=== PATIENT | male | born 1935 | race Caucasian/White ===

== ENCOUNTER 2016-08-22 13:57 | Inpatient (IN) | payer OTHER ==
[~2016-08-22] VITALS: Ht 185.4 cm; Wt 110.4 kg
[2016-08-22] VITALS (11 sets, daily range): BP systolic 164–1523; BP diastolic 71–89
[~2016-08-22 13:57] MED LIST: ALEVE220 MG PO; AMLODIPINE BESYL5 MG PO; ARTHRITIS PAIN650 M1 PO; ASCORBIC ACID500 M3 PO; AZITHROMYCIN250 MG PO; BACTRIM,SEPT1 TABLET PO; BENADRYL25 MG PO; BISACODYL5 MG PO; CELEBREX200 MG PO; COUMADIN2 MG PO; COUMADIN3 MG PO; DOCUSATE SODIU100 MG PO; ELIQUIS5 MG PO; FEOSOL325 MG PO; FOLIC ACID1 MG PO; HYDROCHLOROTHIA25 MG PO; HYZAAR 50-121 TABLET PO; METHYLDOPA250 MG PO; NYQUIL D COLD295 ML PO; OXYCODONE HCL5 MG PO; RAMIPRIL10 MG PO; SENNA-TIME S T1 EACH PO; TESSALON200 MG PO; THERAGRAN1 TABLET PO; TOPROL XL100 MG PO; TYLENOL REGULA325 MG PO; XARELTO10 MG PO; XARELTO20 MG PO; ZOCOR80 MG PO
[2016-08-22 14:46] LABS: INTER. NORMALIZED RATIO 1.3; PROTHROMBIN TIME 12.9 (9.2-11.2)
[2016-08-22 14:48] LABS: CHLORIDE 107 mEq/L (99-109); SODIUM 140 mEq/L (136-147)
[2016-08-22 14:51] LABS: GLUCOSE 115 mg/dL (70-99)
[2016-08-22 14:52] LABS: ANION GAP 13 MEQ/L (2-14)
[2016-08-22 14:53] LABS: TOTAL BILIRUBIN 1.5 mg/dL (0.0-1.0)
[2016-08-22 14:54] LABS: ALKALINE PHOSPHATASE 98 IU/L (3-129); GFR ESTIMATE (CALCULATED) > 59 mL/min/
[2016-08-22 14:55] LABS: UREA NITROGEN (BUN) 26 mg/dL (9-23)
[2016-08-22 14:57] LABS: TROP-I INTERPRETATION NEGATIVE; TROPONIN-I 0.01 ng/mL (0.0-0.30)
[2016-08-22 14:58] LABS: LIPASE 23 U/L (1.0-51.0)
[2016-08-22 15:12] LABS: EOSINOPHIL (%) 0.5 % (0-5); HEMATOCRIT 16.5 % (38.0-50.0); IMMATURE GRANULOCYTE (%) 1.9 % (0.0-0.7); INSTRUMENT ABS NEUTROPHIL CT 0.9 K/uL; MCH 42.4 PG (29.0-34.0); MCHC 32.1 G/DL (30.0-36.0); MEAN PLAT.VOLUME 11.2 uM^3 (9.0-12.4); MONOCYTE (%) 8.1 % (3-12); MONOCYTE COUNT 0.2 K/uL (0-0.8); NEUTROPHIL (%) 44.5 % (45-76); NEUTROPHIL COUNT 0.9 K/uL (1.8-6.4); NRBC (%) 0.9 /100 WBC (0-0); PLATELET COUNT 122 K/uL (156-360); RBC DIS.WIDTH-CV 21.9 % (11.8-14.6); RBC DIS.WIDTH-SD 104.3 % (39-53); RED BLOOD COUNT 1.25 M/uL (4.00-5.50); WHITE BLOOD COUNT 2.1 K/uL (4.1-10.2)
[2016-08-22] MEDS ORDERED: ANORO ELLIPTA1 EACH IH (16:48)
[2016-08-22] MEDS ORDERED: TOLTERODINE TART2 MG PO (16:48)
[2016-08-22] MEDS ORDERED: HYDROCHLOROTHIA25 MG PO (16:49)
[2016-08-22] MEDS ORDERED: ASCORBIC ACID500 M3 PO (16:49)
[2016-08-22] MEDS ORDERED: BAL B-1001 EACH PO (16:50)
[2016-08-22] MEDS ORDERED: ALEVE220 MG PO (16:51)
[2016-08-22 21:57] LABS: METH RESISTANT S AUREUS PCR NEGATIVE (NEGATIVE)
[2016-08-22 22:04] LABS: PROBE CHECK PASS; SPECIMEN PROCESSING CONTROL PASS
[2016-08-22 23:44] LABS: TROP-I INTERPRETATION NEGATIVE; TROPONIN-I 0.02 ng/mL (0.0-0.30)
[2016-08-22 23:55] LABS: HEMATOCRIT 18.6 % (38.0-50.0)
[2016-08-22 23:57] LABS: MCV 114.1 FL (86-99)
[2016-08-23] VITALS (18 sets, daily range): BP systolic 126–210; BP diastolic 50–93
[2016-08-23 04:24] LABS: CHLORIDE 107 mEq/L (99-109); SODIUM 141 mEq/L (136-147)
[2016-08-23 04:26] LABS: GLUCOSE 152 mg/dL (70-99)
[2016-08-23 04:27] LABS: ANION GAP 13 MEQ/L (2-14)
[2016-08-23 04:30] LABS: ALKALINE PHOSPHATASE 93 IU/L (3-129); GFR ESTIMATE (CALCULATED) > 59 mL/min/
[2016-08-23 04:31] LABS: UREA NITROGEN (BUN) 22 mg/dL (9-23)
[2016-08-23 04:32] LABS: DIRECT BILIRUBIN 0.8 mg/dL (0.0-0.3)
[2016-08-23 04:34] LABS: TOTAL BILIRUBIN 2.1 mg/dL (0.0-1.0)
[2016-08-23 04:36] LABS: TROP-I INTERPRETATION NEGATIVE; TROPONIN-I 0.03 ng/mL (0.0-0.30)
[2016-08-23 04:37] LABS: HEMATOCRIT 22.9 % (38.0-50.0); MCH 37.7 PG (29.0-34.0); MCHC 34.1 G/DL (30.0-36.0); MCV 110.6 FL (86-99); MEAN PLAT.VOLUME 11.1 uM^3 (9.0-12.4); NRBC (%) 1.4 /100 WBC (0-0); PLATELET COUNT 104 K/uL (156-360); RBC DIS.WIDTH-CV 27.7 % (11.8-14.6); RBC DIS.WIDTH-SD 103.2 % (39-53); WHITE BLOOD COUNT 2.1 K/uL (4.1-10.2)
[2016-08-23 04:38] LABS: RED BLOOD COUNT 2.07 M/uL (4.00-5.50)
[2016-08-23 15:15] LABS: IRON 259 MCG/DL (35-150)
[2016-08-23 15:58] LABS: LACTATE DEHYDROGENASE 204 IU/L (20-246)
[2016-08-23 16:41] LABS: FERRITIN 537 NG/ML (22-322)
[2016-08-23 16:44] LABS: TYPE OF FLUID PLEURAL
[2016-08-23 17:19] LABS: BODY FLUID LDH 66 IU/L
[2016-08-23 17:21] LABS: BODY FLUID PROTEIN < 3.0 G/DL
[2016-08-23 17:31] LABS: BODY FLUID EOSINOPHILS 0 % (0-25); BODY FLUID RBC'S 8000 /MM^3 (0-100); BODY FLUID WBC'S 308 /MM^3 (0-500); MONONUCLEAR WBC'S 100 %; POLYNUCLEAR WBC'S 0 % (0-25)
[2016-08-23 18:15] LABS: GLUCOSE 106 mg/dL (70-99)
[2016-08-24] VITALS (10 sets, daily range): BP systolic 112–140; BP diastolic 55–85
[2016-08-24 07:17] LABS: ALKALINE PHOSPHATASE 67 IU/L (3-129); ANION GAP 7 MEQ/L (2-14); CHLORIDE 105 MEQ/L (99-109); DIRECT BILIRUBIN 0.5 mg/dL (0.0-0.3); GFR ESTIMATE (CALCULATED) > 59 mL/min/; GLUCOSE 99 mg/dL (70-99); POTASSIUM 3.3 MEQ/L (3.7-5.4); SAMPLE HEMOLYSIS CHECK 0; SAMPLE ICTERIC CHECK 0; SAMPLE LIPEMIA CHECK 0; SODIUM 140 MEQ/L (136-147); TOTAL BILIRUBIN 1.6 MG/DL (0.0-1.0); UREA NITROGEN (BUN) 17 mg/dL (9-23)
[2016-08-24 07:25] LABS: EOSINOPHIL (%) 1.2 % (0-5); HEMATOCRIT 21.3 % (38.0-50.0); IMMATURE GRANULOCYTE (%) 1.8 % (0.0-0.7); INSTRUMENT ABS NEUTROPHIL CT 0.4 K/uL; MCH 35.4 PG (29.0-34.0); MCHC 32.9 G/DL (30.0-36.0); MCV 107.6 FL (86-99); MEAN PLAT.VOLUME 11.2 uM^3 (9.0-12.4); MONOCYTE (%) 11.6 % (3-12); MONOCYTE COUNT 0.2 K/uL (0-0.8); NEUTROPHIL (%) 23.8 % (45-76); NEUTROPHIL COUNT 0.4 K/uL (1.8-6.4); NRBC (%) 1.2 /100 WBC (0-0); PLATELET COUNT 85 K/uL (156-360); RBC DIS.WIDTH-CV 28.3 % (11.8-14.6); RBC DIS.WIDTH-SD 105.6 % (39-53); RED BLOOD COUNT 1.98 M/uL (4.00-5.50)
[2016-08-24 07:29] LABS: WHITE BLOOD COUNT 1.6 K/uL (4.1-10.2)
[2016-08-25 03:45] VITALS: BP 151/65
[2016-08-25 04:00] VITALS: BP 151/65
[2016-08-25 07:10] VITALS: BP 128/60
[2016-08-25 07:10] LABS: GLOBULINS 2.6 G/DL (2.3-3.5)
[2016-08-25 07:47] LABS: IMM.RETIC FRACTION 13.3 % (3-19); RETIC HGB EQUIVALENT 41.8 (28-36); RETICULOCYTE COUNT 2.8 % (0.5-1.8)
[2016-08-25 07:52] LABS: HEMATOCRIT 24.7 % (38.0-50.0); MCH 35.2 PG (29.0-34.0); MCHC 33.2 G/DL (30.0-36.0); MEAN PLAT.VOLUME 10.9 uM^3 (9.0-12.4); PLATELET COUNT 80 K/uL (156-360); RBC DIS.WIDTH-CV 26.4 % (11.8-14.6); RBC DIS.WIDTH-SD 94.2 % (39-53); RED BLOOD COUNT 2.33 M/uL (4.00-5.50)
[2016-08-25 08:05] LABS: WHITE BLOOD COUNT 2.1 K/uL (4.1-10.2)
[2016-08-25 10:48] LABS: ABS NEUTROPHIL COUNT 0.7; ANISOCYTOSIS 1+; ATYPICAL LYMPHOCYTE 6.4 %; BAND NEUTROPHILS 1.8 % (0-8.0); EOSINOPHIL ABS CT 0; EOSINOPHILS 0.9 % (0-5.0); INSTRUMENT ABS NEUTROPHIL CT 0.7 K/uL; LYMPHOCYTES 52.7 % (15.0-45.0); MACROCYTES 1+; METAMYELOCYTES 0.9 %; NUCLEATED RBC'S 0.9; OVALOCYTES 1+; PLAT.SUFFICIENCY DECREASED; POIKILOCYTOSIS 1+; SEG.NEUTROPHILS 31.8 % (46.0-76.0); SMUDGE CELLS 6.4
[2016-08-25 12:19] VITALS: BP 132/60
[2016-08-25 15:10] VITALS: BP 137/62
[2016-08-25 20:00] VITALS: BP 144/62
[2016-08-26] VITALS (7 sets, daily range): BP systolic 117–155; BP diastolic 55–65
[2016-08-26 07:06] LABS: HEMATOCRIT 24.7 % (38.0-50.0); MCH 34.8 PG (29.0-34.0); MCHC 32.4 G/DL (30.0-36.0); MCV 107.4 FL (86-99); MEAN PLAT.VOLUME 11.3 uM^3 (9.0-12.4); PLATELET COUNT 87 K/uL (156-360); RBC DIS.WIDTH-CV 25.8 % (11.8-14.6); RBC DIS.WIDTH-SD 95.8 % (39-53); WHITE BLOOD COUNT 2.2 K/uL (4.1-10.2)
[2016-08-26 07:26] LABS: ANION GAP 8 MEQ/L (2-14); CHLORIDE 105 MEQ/L (99-109); GFR ESTIMATE (CALCULATED) > 59 mL/min/; GLUCOSE 109 mg/dL (70-99); POTASSIUM 3.6 MEQ/L (3.7-5.4); SAMPLE HEMOLYSIS CHECK 0; SAMPLE ICTERIC CHECK 0; SAMPLE LIPEMIA CHECK 0; SODIUM 140 MEQ/L (136-147); UREA NITROGEN (BUN) 17 mg/dL (9-23)
[2016-08-26 11:19] LABS: ABS NEUTROPHIL COUNT 1.5; ANISOCYTOSIS 2+; BAND NEUTROPHILS 1.8 % (0-8.0); EOSINOPHIL ABS CT 0; GIANT PLATELETS 1+; INSTRUMENT ABS NEUTROPHIL CT 1.3 K/uL; MACROCYTES 1+; MICROCYTOSIS 1+; PLAT.SUFFICIENCY DECREASED; POIKILOCYTOSIS 1+; SMUDGE CELLS 1.8
[2016-08-26 11:24] LABS: LYMPHOCYTES 25.9 % (15.0-45.0); SEG.NEUTROPHILS 64.3 % (46.0-76.0)
[2016-08-26 12:02] LABS: ALBUMIN PERCENT 66.1 %; ALPHA-1 GLOBULIN 0.17 G/DL (0.15-0.40); ALPHA-1 PERCENT 2.9 %; ALPHA-2 GLOBULIN 0.52 G/DL (0.45-0.85); ALPHA-2 PERCENT 8.8 %; BETA PERCENT 8.2 %
[2016-08-26 22:05] LABS: BODY FLUID PH 7.8 (())
[2016-08-27 04:00] VITALS: BP 114/56
[2016-08-27 09:00] VITALS: BP 128/55
[2016-08-27 10:05] LABS: HIV INDEX 0.09; HIV-1/2 AB/AG COMBO Nonreactive
[2016-08-27 11:03] LABS: EOSINOPHIL (%) 0.9 % (0-5); HEMATOCRIT 23.4 % (38.0-50.0); IMMATURE GRANULOCYTE (%) 2.3 % (0.0-0.7); IMMATURE GRANULOCYTE COUNT 0.1 K/uL; INSTRUMENT ABS NEUTROPHIL CT 0.6 K/uL; MCH 35.5 PG (29.0-34.0); MCHC 33.3 G/DL (30.0-36.0); MCV 106.4 FL (86-99); MONOCYTE (%) 23.1 % (3-12); MONOCYTE COUNT 0.5 K/uL (0-0.8); NEUTROPHIL (%) 29.7 % (45-76); NEUTROPHIL COUNT 0.6 K/uL (1.8-6.4); PLATELET COUNT 78 K/uL (156-360); RBC DIS.WIDTH-CV 25.4 % (11.8-14.6); RBC DIS.WIDTH-SD 90.1 % (39-53); WHITE BLOOD COUNT 2.2 K/uL (4.1-10.2)
[2016-08-27 11:25] LABS: ANION GAP 7 MEQ/L (2-14); CHLORIDE 101 MEQ/L (99-109); POTASSIUM 3.7 MEQ/L (3.7-5.4); SAMPLE HEMOLYSIS CHECK 0; SAMPLE ICTERIC CHECK 0; SAMPLE LIPEMIA CHECK 0; SODIUM 135 MEQ/L (136-147)
[2016-08-27 11:31] LABS: GFR ESTIMATE (CALCULATED) > 59 mL/min/; GLUCOSE 133 mg/dL (70-99); UREA NITROGEN (BUN) 18 mg/dL (9-23)
[2016-08-27 16:20] VITALS: BP 110/58
[2016-08-27 19:57] VITALS: BP 116/54
[2016-08-28] VITALS (8 sets, daily range): BP systolic 104–129; BP diastolic 53–60
[2016-08-28 07:03] LABS: HEMATOCRIT 22.1 % (38.0-50.0); IMMATURE GRANULOCYTE (%) 1.7 % (0.0-0.7); IMMATURE GRANULOCYTE COUNT 0.1 K/uL; INSTRUMENT ABS NEUTROPHIL CT 1.2 K/uL; LYMPHOCYTE COUNT 1.3 K/uL (1.0-2.8); MCH 35.4 PG (29.0-34.0); MCHC 33.5 G/DL (30.0-36.0); MCV 105.7 FL (86-99); MEAN PLAT.VOLUME 12.3 uM^3 (9.0-12.4); MONOCYTE (%) 12.9 % (3-12); MONOCYTE COUNT 0.4 K/uL (0-0.8); NEUTROPHIL (%) 40.2 % (45-76); NEUTROPHIL COUNT 1.2 K/uL (1.8-6.4); PLATELET COUNT 70 K/uL (156-360); RBC DIS.WIDTH-CV 25.2 % (11.8-14.6); RBC DIS.WIDTH-SD 93.3 % (39-53); RED BLOOD COUNT 2.09 M/uL (4.00-5.50)
[2016-08-28 07:21] LABS: ANION GAP 5 MEQ/L (2-14); CHLORIDE 99 MEQ/L (99-109); GFR ESTIMATE (CALCULATED) > 59 mL/min/; POTASSIUM 4.1 MEQ/L (3.7-5.4); SAMPLE HEMOLYSIS CHECK 0; SAMPLE ICTERIC CHECK 0; SAMPLE LIPEMIA CHECK 0; SODIUM 133 MEQ/L (136-147); UREA NITROGEN (BUN) 17 mg/dL (9-23)
[2016-08-28 07:23] LABS: GLUCOSE 88 mg/dL (70-99)
[2016-08-28 10:24] LABS: ABS NEUTROPHIL COUNT 1.5; ANISOCYTOSIS 2+; ATYPICAL LYMPHOCYTE 6.1 %; BAND NEUTROPHILS 1.7 % (0-8.0); EOSINOPHIL ABS CT 0.1; EOSINOPHILS 1.7 % (0-5.0); HYPOCHROMASIA 2+; PLAT.SUFFICIENCY DECREASED; POIKILOCYTOSIS 1+; SMUDGE CELLS 4.3; TEAR DROP CELLS 1+
[2016-08-29 05:36] VITALS: BP 128/60
[2016-08-29 07:01] LABS: HEMATOCRIT 24.1 % (38.0-50.0); MCH 34.3 PG (29.0-34.0); MCHC 33.2 G/DL (30.0-36.0); MCV 103.4 FL (86-99); MEAN PLAT.VOLUME 11.8 uM^3 (9.0-12.4); PLATELET COUNT 69 K/uL (156-360); RBC DIS.WIDTH-CV 24.8 % (11.8-14.6); RBC DIS.WIDTH-SD 85.6 % (39-53); RED BLOOD COUNT 2.33 M/uL (4.00-5.50); WHITE BLOOD COUNT 2.2 K/uL (4.1-10.2)
[2016-08-29 07:13] LABS: ANION GAP 7 MEQ/L (2-14); CHLORIDE 101 MEQ/L (99-109); GFR ESTIMATE (CALCULATED) > 59 mL/min/; GLUCOSE 94 mg/dL (70-99); MAGNESIUM 2.1 mg/dl (1.3-2.7); POTASSIUM 4.1 MEQ/L (3.7-5.4); SAMPLE HEMOLYSIS CHECK 0; SAMPLE ICTERIC CHECK 0; SAMPLE LIPEMIA CHECK 0; SODIUM 138 MEQ/L (136-147); UREA NITROGEN (BUN) 19 mg/dL (9-23)
[2016-08-29 07:30] VITALS: BP 133/84
[2016-08-29 08:03] LABS: ABS NEUTROPHIL COUNT 1.1; ANISOCYTOSIS 3+; ATYPICAL LYMPHOCYTE 15.8 %; BAND NEUTROPHILS 1.8 % (0-8.0); BASOPHILS 0.9 %; EOSINOPHIL ABS CT 0; EOSINOPHILS 1.8 % (0-5.0); HYPOCHROMASIA 2+; INSTRUMENT ABS NEUTROPHIL CT 0.8 K/uL; LYMPHOCYTES 28.9 % (15.0-45.0); MACROCYTES 1+; MICROCYTOSIS 2+; PLAT.SUFFICIENCY DECREASED; SEG.NEUTROPHILS 48.2 % (46.0-76.0); SMUDGE CELLS 2.6
[2016-08-29 11:00] VITALS: BP 110/64
[2016-08-29] MEDS ORDERED: CEFDINIR300 MG PO (13:21)
[2016-08-29] MEDS ORDERED: FUROSEMIDE40 MG PO (13:21)
[2016-08-29] MEDS ORDERED: FLUCONAZOLE100 MG PO (13:21)
[2016-08-31 18:12] LABS: Flow Clinical Information NOT PROVIDED (()); Flow Number of Markers 22 (()); Flow Spec Viability 93 % (()); Flow Specimen Type BONE MARROW (())
== END 2016-08-29 15:45 | DRG 808 ==
LOC: EME 13:57 → 4EAST 16:59 → EDOF 16:59 → 4EAST 18:13
PROVIDERS: Emergency Medicine; Internal Medicine; Internal Medicine Gastroenterology; Internal Medicine Hematology & Oncology; Radiology Diagnostic Radiology
PROC: 30233N1 Transfusion of Nonautologous Red Blood Cells into Peripheral Vein, Percutaneous Approach (ICD-10-PCS; principal; 2016-08-22)
PROC: 0W993ZZ Drainage of Right Pleural Cavity, Percutaneous Approach (ICD-10-PCS; 2016-08-23)
PROC: 0DJ08ZZ Inspection of Upper Intestinal Tract, Via Natural or Artificial Opening Endoscopic (ICD-10-PCS; 2016-08-26)
PROC: 07DR3ZX Extraction of Iliac Bone Marrow, Percutaneous Approach, Diagnostic (ICD-10-PCS; 2016-08-28)
DX: D61.818 Other pancytopenia (principal); J18.9 Pneumonia, unspecified organism; J96.01 Acute respiratory failure with hypoxia; J90 Pleural effusion, not elsewhere classified; B37.81 Candidal esophagitis; J98.11 Atelectasis; I71.4 Abdominal aortic aneurysm, without rupture; I48.2 Chronic atrial fibrillation; I10 Essential (primary) hypertension; J44.9 Chronic obstructive pulmonary disease, unspecified; R00.0 Tachycardia, unspecified; D18.03 Hemangioma of intra-abdominal structures; Z96.652 Presence of left artificial knee joint; Z96.642 Presence of left artificial hip joint; I50.9 Heart failure, unspecified; K57.30 Diverticulosis of large intestine without perforation or abscess without bleeding; K76.89 Other specified diseases of liver; H91.90 Unspecified hearing loss, unspecified ear; M19.90 Unspecified osteoarthritis, unspecified site; K59.00 Constipation, unspecified; G47.00 Insomnia, unspecified; L81.4 Other melanin hyperpigmentation; L53.9 Erythematous condition, unspecified; K21.9 Gastro-esophageal reflux disease without esophagitis; E66.9 Obesity, unspecified; Z79.01 Long term (current) use of anticoagulants; Z68.32 Body mass index [BMI] 32.0-32.9, adult; Z87.891 Personal history of nicotine dependence; Z80.9 Family history of malignant neoplasm, unspecified
CPT/HCPCS: 71010; 71260; 74177; 77012; 80048; 80053; 80076; 80202; 81003; 81256 90; 82140; 82607; 82728; 82746; 82945; 82947 91; 83010 90; 83540; 83605; 83615; 83615 91; 83690; 83735; 83880; 83883 90; 83986 90; 84155; 84157; 84165; 84466; 84484; 85007; 85014; 85018; 85025; 85027; 85045; 85610; 85999; 86703; 86850; 86900; 86901; 86920; 87040; 87070; 87075; 87205; 87641; 88108; 88184 90; 88185 90; 88189 90; 89051; 92610 GN; 93005; 93306; 93971; 94640; 94640 76; 94799; 99202; 99281; 99285; C9113; J0360; J1940; J2405; J2543; J3010; J3370; J7030; J7050; P9016

== ENCOUNTER 2016-10-06 22:51 | Inpatient (IN) | payer OTHER ==
[~2016-10-06] VITALS: Ht 185.4 cm; Wt 104.9 kg
[~2016-10-06 22:51] MED LIST changes: +ANORO ELLIPTA1 EACH IH; +BAL B-1001 EACH PO; +CEFDINIR300 MG PO; +FLUCONAZOLE100 MG PO; +FUROSEMIDE40 MG PO; +TOLTERODINE TART2 MG PO
[2016-10-06 23:54] LABS: CHLORIDE 103 mEq/L (99-109); SODIUM 137 mEq/L (136-147)
[2016-10-06 23:56] LABS: GLUCOSE 127 mg/dL (70-99); INTER. NORMALIZED RATIO 1.2; PROTHROMBIN TIME 12.7 (9.2-11.2); PTT 29.6 (25-32)
[2016-10-06 23:57] LABS: ANION GAP 12 MEQ/L (2-14)
[2016-10-06 23:58] LABS: TOTAL BILIRUBIN 1.4 mg/dL (0.0-1.0)
[2016-10-06 23:59] LABS: ALKALINE PHOSPHATASE 84 IU/L (3-129)
[2016-10-07] VITALS (15 sets, daily range): BP systolic 120–177; BP diastolic 56–72
[2016-10-07] LABS: GFR ESTIMATE (CALCULATED) > 59 mL/min/
[2016-10-07 00:01] LABS: UREA NITROGEN (BUN) 29 mg/dL (9-23)
[2016-10-07 00:03] LABS: LIPASE 21 U/L (1.0-51.0)
[2016-10-07 00:06] LABS: TROP-I INTERPRETATION NEGATIVE; TROPONIN-I < 0.01 ng/mL (0.0-0.30)
[2016-10-07 00:34] LABS: ANISOCYTOSIS 1+; MACROCYTES 1+; OVALOCYTES 1+; PLAT.SUFFICIENCY DECREASED; POIKILOCYTOSIS 1+
[2016-10-07 00:37] LABS: ABS NEUTROPHIL COUNT 2.1; BAND NEUTROPHILS 2.7 % (0-8.0); EOSINOPHIL ABS CT 0; HEMATOCRIT 20.7 % (38.0-50.0); INSTRUMENT ABS NEUTROPHIL CT 1.6 K/uL; LYMPHOCYTES 12.5 % (15.0-45.0); MCHC 33.3 G/DL (30.0-36.0); MEAN PLAT.VOLUME 12.8 uM^3 (9.0-12.4); METAMYELOCYTES 2.7 %; MYELOCYTES 4.5 %; PLATELET COUNT 57 K/uL (156-360); RED BLOOD COUNT 1.97 M/uL (4.00-5.50); SEG.NEUTROPHILS 73.2 % (46.0-76.0)
[2016-10-07 00:38] LABS: MCV 105.1 FL (86-99); WHITE BLOOD COUNT 2.8 K/uL (4.1-10.2)
[2016-10-07] MEDS ORDERED: HYZAAR 50-121 TABLET PO (01:16)
[2016-10-08 04:33] VITALS: BP 138/61
[2016-10-08 07:37] LABS: HEMATOCRIT 24.6 % (38.0-50.0); MCH 33.3 PG (29.0-34.0); MCHC 33.3 G/DL (30.0-36.0); MEAN PLAT.VOLUME 13.2 uM^3 (9.0-12.4); PLATELET COUNT 52 K/uL (156-360); RBC DIS.WIDTH-CV 27.4 % (11.8-14.6)
[2016-10-08 07:39] LABS: RED BLOOD COUNT 2.46 M/uL (4.00-5.50); WHITE BLOOD COUNT 4.5 K/uL (4.1-10.2)
[2016-10-08 07:48] LABS: ANION GAP 8 MEQ/L (2-14); CHLORIDE 101 MEQ/L (99-109); GFR ESTIMATE (CALCULATED) > 59 mL/min/; GLUCOSE 133 mg/dL (70-99); POTASSIUM 3.4 MEQ/L (3.7-5.4); SAMPLE HEMOLYSIS CHECK 0; SAMPLE ICTERIC CHECK 0; SAMPLE LIPEMIA CHECK 0; SODIUM 136 MEQ/L (136-147); UREA NITROGEN (BUN) 25 mg/dL (9-23)
[2016-10-08 08:56] VITALS: BP 147/67
[2016-10-08 11:39] VITALS: BP 115/55
[2016-10-08 14:59] VITALS: BP 127/58
[2016-10-08 19:32] VITALS: BP 133/61
[2016-10-09 00:27] VITALS: BP 155/69
[2016-10-09 03:08] VITALS: BP 155/68
[2016-10-09 07:06] VITALS: BP 157/69
[2016-10-09 09:04] LABS: HEMATOCRIT 24.2 % (38.0-50.0); MCH 33.8 PG (29.0-34.0); MCHC 33.5 G/DL (30.0-36.0); MCV 100.8 FL (86-99); MEAN PLAT.VOLUME 12.5 uM^3 (9.0-12.4); PLATELET COUNT 51 K/uL (156-360); RBC DIS.WIDTH-CV 26.8 % (11.8-14.6); RBC DIS.WIDTH-SD 90.3 % (39-53); WHITE BLOOD COUNT 3.5 K/uL (4.1-10.2)
[2016-10-09 09:14] LABS: INFLUENZA A VIRAL ANTIGEN NEGATIVE; INFLUENZA B VIRAL ANTIGEN NEGATIVE
[2016-10-09 09:16] LABS: ANION GAP 6 MEQ/L (2-14); CHLORIDE 99 MEQ/L (99-109); GFR ESTIMATE (CALCULATED) > 59 mL/min/; GLUCOSE 134 mg/dL (70-99); MAGNESIUM 2.1 mg/dl (1.3-2.7); POTASSIUM 3.4 MEQ/L (3.7-5.4); SAMPLE HEMOLYSIS CHECK 0; SAMPLE ICTERIC CHECK 0; SAMPLE LIPEMIA CHECK 0; SODIUM 137 MEQ/L (136-147); UREA NITROGEN (BUN) 25 mg/dL (9-23)
[2016-10-09 12:57] VITALS: BP 124/60
[2016-10-09 17:02] VITALS: BP 103/51
[2016-10-09 19:40] VITALS: BP 124/60
[2016-10-10] VITALS (12 sets, daily range): BP systolic 102–150; BP diastolic 48–67
[2016-10-10 06:55] LABS: HEMATOCRIT 23.9 % (38.0-50.0); MCH 32.8 PG (29.0-34.0); MCHC 32.2 G/DL (30.0-36.0); MCV 101.7 FL (86-99); MEAN PLAT.VOLUME 12.2 uM^3 (9.0-12.4); PLATELET COUNT 53 K/uL (156-360); RBC DIS.WIDTH-CV 26.7 % (11.8-14.6); RBC DIS.WIDTH-SD 91.4 % (39-53); RED BLOOD COUNT 2.35 M/uL (4.00-5.50); WHITE BLOOD COUNT 2.7 K/uL (4.1-10.2)
[2016-10-10 07:17] LABS: ANION GAP 6 MEQ/L (2-14); CHLORIDE 103 MEQ/L (99-109); GFR ESTIMATE (CALCULATED) > 59 mL/min/; GLUCOSE 116 mg/dL (70-99); SAMPLE HEMOLYSIS CHECK 0; SAMPLE ICTERIC CHECK 0; SAMPLE LIPEMIA CHECK 0; SODIUM 141 MEQ/L (136-147); UREA NITROGEN (BUN) 27 mg/dL (9-23)
[2016-10-10 08:42] LABS: TYPE OF FLUID PLEURAL
[2016-10-10 09:14] LABS: BODY FLUID LDH 101 IU/L
[2016-10-10 09:15] LABS: BODY FLUID PROTEIN < 3.0 G/DL
[2016-10-10 09:20] LABS: BODY FLUID RBC'S 23000 /MM^3 (0-100); BODY FLUID WBC'S 703 /MM^3 (0-500)
[2016-10-10 10:01] LABS: BODY FLUID EOSINOPHILS 0 % (0-25); MONONUCLEAR WBC'S 97 %; POLYNUCLEAR WBC'S 3 % (0-25)
[2016-10-11 01:08] LABS: HEMATOCRIT 26.7 % (38.0-50.0)
[2016-10-11 01:13] LABS: MCV 97.4 FL (86-99)
[2016-10-11 04:37] VITALS: BP 117/59
[2016-10-11 06:59] LABS: HEMATOCRIT 26.3 % (38.0-50.0); MCH 32.5 PG (29.0-34.0); MCHC 33.1 G/DL (30.0-36.0); MCV 98.1 FL (86-99); RBC DIS.WIDTH-CV 24.6 % (11.8-14.6); RBC DIS.WIDTH-SD 81.4 % (39-53); RED BLOOD COUNT 2.68 M/uL (4.00-5.50); WHITE BLOOD COUNT 2.2 K/uL (4.1-10.2)
[2016-10-11 07:27] LABS: ANION GAP 6 MEQ/L (2-14); CHLORIDE 103 MEQ/L (99-109); GFR ESTIMATE (CALCULATED) > 59 mL/min/; GLUCOSE 103 mg/dL (70-99); POTASSIUM 3.6 MEQ/L (3.7-5.4); SAMPLE HEMOLYSIS CHECK 0; SAMPLE ICTERIC CHECK 0; SAMPLE LIPEMIA CHECK 0; SODIUM 140 MEQ/L (136-147); UREA NITROGEN (BUN) 26 mg/dL (9-23)
[2016-10-11 07:30] VITALS: BP 141/64
[2016-10-11 07:46] LABS: IMM.PLATELET FRACTION 4.4 (1-7); MEAN PLAT.VOLUME 12.2 uM^3 (9.0-12.4); PLATELET COUNT 50 K/uL (156-360)
[2016-10-11] MEDS ORDERED: VENTOLIN HFA18 GM IH (10:40)
[2016-10-11] MEDS ORDERED: FUROSEMIDE40 MG PO (10:40)
[2016-10-11] MEDS ORDERED: CEFDINIR300 MG PO (10:40)
[2016-10-11] MEDS ORDERED: FLORA-Q CAPSUL1 EACH PO (10:40)
[2016-10-11] MEDS ORDERED: SPIRIVA RESPIMAT4 GM IH (10:40)
[2016-10-11 11:43] VITALS: BP 105/51
== END 2016-10-11 16:20 | disposition home or self-care (01) | DRG 193 ==
LOC: EME → EDBD 22:51 → EME 22:51 → 4EAST 10-07 01:47 → EDOF 10-07 01:47 → 4EAST 10-07 04:30
PROVIDERS: Emergency Medicine; Hospitalist; Radiology Diagnostic Radiology
PROC: 30233N1 Transfusion of Nonautologous Red Blood Cells into Peripheral Vein, Percutaneous Approach (ICD-10-PCS; principal; 2016-10-07)
PROC: 0W9930Z Drainage of Right Pleural Cavity with Drainage Device, Percutaneous Approach (ICD-10-PCS; 2016-10-10)
DX: J18.9 Pneumonia, unspecified organism (principal); J90 Pleural effusion, not elsewhere classified; D61.818 Other pancytopenia; J96.01 Acute respiratory failure with hypoxia; R17 Unspecified jaundice; I50.9 Heart failure, unspecified; J43.9 Emphysema, unspecified; I48.2 Chronic atrial fibrillation; I10 Essential (primary) hypertension; Z77.22 Contact with and (suspected) exposure to environmental tobacco smoke (acute) (chronic); E78.5 Hyperlipidemia, unspecified; I71.4 Abdominal aortic aneurysm, without rupture; I36.1 Nonrheumatic tricuspid (valve) insufficiency; I34.0 Nonrheumatic mitral (valve) insufficiency; I35.0 Nonrheumatic aortic (valve) stenosis; I27.2 Other secondary pulmonary hypertension; D46.9 Myelodysplastic syndrome, unspecified; Z86.711 Personal history of pulmonary embolism; Z96.652 Presence of left artificial knee joint; Z96.642 Presence of left artificial hip joint; Z87.891 Personal history of nicotine dependence
CPT/HCPCS: 71010; 71030; 80048; 80053; 81003; 82803; 82945; 83605; 83615 91; 83690; 83735; 83880; 84157; 84484; 85014; 85018; 85025; 85027; 85610; 85730; 86900; 86901; 86920; 87040; 87070; 87075; 87077; 87186; 87205; 87502; 87801; 88108; 88305; 89051; 93005; 93970; 94640; 94640 76; 94760; 94799; 97530 GO; 97530 GP; 99202; 99281; 99285; J0692; J0696; J1940; J7050; P9016

== ENCOUNTER 2016-11-06 19:51 | Observation (INO) | payer OTHER ==
[~2016-11-06] VITALS: Ht 185.4 cm; Wt 111.3 kg
[~2016-11-06 19:51] MED LIST changes: +FLORA-Q CAPSUL1 EACH PO; +SPIRIVA RESPIMAT4 GM IH; +VENTOLIN HFA18 GM IH
[2016-11-06 21:28] LABS: CHLORIDE 110 mEq/L (99-109); SODIUM 140 mEq/L (136-147)
[2016-11-06 21:30] LABS: GLUCOSE 114 mg/dL (70-99); HEMATOCRIT 19.8 % (38.0-50.0); MCH 33.2 PG (29.0-34.0); MCHC 32.8 G/DL (30.0-36.0); RBC DIS.WIDTH-CV 27.3 % (11.8-14.6); RBC DIS.WIDTH-SD 89.7 % (39-53); RED BLOOD COUNT 1.96 M/uL (4.00-5.50)
[2016-11-06 21:31] LABS: WHITE BLOOD COUNT 3.1 K/uL (4.1-10.2)
[2016-11-06 21:32] LABS: ANION GAP 8 MEQ/L (2-14)
[2016-11-06 21:34] LABS: GFR ESTIMATE (CALCULATED) > 59 mL/min/
[2016-11-06 21:35] LABS: UREA NITROGEN (BUN) 28 mg/dL (9-23)
[2016-11-06 21:54] LABS: ADD MIUA? NO; BILIRUBIN NEGATIVE; BLOOD NEGATIVE; COLOR YELLOW ((YELLOW)); GLUCOSE (STRIP) NEGATIVE; KETONES NEGATIVE; LEUKOCYTES NEGATIVE; NITRITE NEGATIVE; PROTEIN (STRIP) 30; UCUL ADDED? NO; UROBILINOGEN 0.2 MG/DL (0.2-1.0)
[2016-11-06 22:20] LABS: IMM.PLATELET FRACTION 4.9 (1-7); MEAN PLAT.VOLUME 11.3 uM^3 (9.0-12.4); PLAT.SUFFICIENCY VERY DECREASED; PLATELET COUNT 22 K/uL (156-360)
[2016-11-06 23:03] VITALS: BP 127/52
[2016-11-06 23:17] VITALS: BP 121/53
[2016-11-07] VITALS (18 sets, daily range): BP systolic 113–158; BP diastolic 46–69
[2016-11-07 07:52] LABS: HEMATOCRIT 22.7 % (38.0-50.0); MCH 32.8 PG (29.0-34.0); MCHC 33.5 G/DL (30.0-36.0); MCV 97.8 FL (86-99); RBC DIS.WIDTH-CV 24.1 % (11.8-14.6); RBC DIS.WIDTH-SD 71.7 % (39-53); RED BLOOD COUNT 2.32 M/uL (4.00-5.50); WHITE BLOOD COUNT 2.3 K/uL (4.1-10.2)
[2016-11-07 08:05] LABS: INTER. NORMALIZED RATIO 1.2; PROTHROMBIN TIME 11.9 (9.2-11.2)
[2016-11-07 08:11] LABS: C DIFF TOXIN NEGATIVE (NEGATIVE)
[2016-11-07 08:17] LABS: PROBE CHECK PASS; SPECIMEN PROCESSING CONTROL PASS
[2016-11-07 08:23] LABS: IMM.PLATELET FRACTION 3.1 (1-7); MEAN PLAT.VOLUME 12.3 uM^3 (9.0-12.4); PLAT.SUFFICIENCY DECREASED
[2016-11-07 08:44] LABS: PLATELET COUNT 26 K/uL (156-360)
[2016-11-07 10:44] LABS: MCV 97.2 FL (86-99)
[2016-11-07 18:13] LABS: HEMATOCRIT 22.7 % (38.0-50.0)
[2016-11-08 03:14] LABS: MCV 95.9 FL (86-99)
[2016-11-08 03:51] VITALS: BP 146/71
[2016-11-08 07:24] LABS: HEMATOCRIT 23.6 % (38.0-50.0); IMM.PLATELET FRACTION 3.6 (1-7); MCH 32.2 PG (29.0-34.0); MCHC 33.1 G/DL (30.0-36.0); MCV 97.5 FL (86-99); MEAN PLAT.VOLUME 11.4 uM^3 (9.0-12.4); RBC DIS.WIDTH-CV 23.8 % (11.8-14.6); RBC DIS.WIDTH-SD 73.4 % (39-53); RED BLOOD COUNT 2.42 M/uL (4.00-5.50)
[2016-11-08 07:28] LABS: PLATELET COUNT 22 K/uL (156-360); WHITE BLOOD COUNT 3.1 K/uL (4.1-10.2)
[2016-11-08 07:38] VITALS: BP 150/68
[2016-11-08 07:38] LABS: ALKALINE PHOSPHATASE 67 IU/L (3-129); ANION GAP 6 MEQ/L (2-14); CHLORIDE 108 MEQ/L (99-109); GFR ESTIMATE (CALCULATED) > 59 mL/min/; GLUCOSE 105 mg/dL (70-99); POTASSIUM 3.8 MEQ/L (3.7-5.4); SAMPLE HEMOLYSIS CHECK 0; SAMPLE ICTERIC CHECK 0; SAMPLE LIPEMIA CHECK 0; SODIUM 137 MEQ/L (136-147); TOTAL BILIRUBIN 1.3 MG/DL (0.0-1.0); UREA NITROGEN (BUN) 19 mg/dL (9-23)
[2016-11-08 07:51] LABS: ANISOCYTOSIS 2+; ATYPICAL LYMPHOCYTE 0.9 %; BASOPHILS 0.9 %; EOSINOPHIL ABS CT 0; INSTRUMENT ABS NEUTROPHIL CT 1.9 K/uL; MACROCYTES 1+; METAMYELOCYTES 0.9 %; OVALOCYTES 1+; POIKILOCYTOSIS 1+; SPHEROCYTES 1+
[2016-11-08 07:52] LABS: LYMPHOCYTES 31.8 % (15.0-45.0); PLAT.SUFFICIENCY VERY DECREASED; SEG.NEUTROPHILS 65.5 % (46.0-76.0)
[2016-11-08 11:40] VITALS: BP 120/75
[2016-11-08] MEDS ORDERED: TOLTERODINE TART2 MG PO (14:35)
[2016-11-08] MEDS ORDERED: ACYCLOVIR400 MG PO (14:36)
[2016-11-08] MEDS ORDERED: ONDANSETRON HCL8 MG PO (14:38)
[2016-11-08] MEDS ORDERED: BACTRIM,SEPT1 TABLET PO (14:39)
[2016-11-08] MEDS ORDERED: POTASSIUM CHLO10 ME4 PO (14:39)
[2016-11-08] MEDS ORDERED: ASCORBIC ACID500 M3 PO (14:40)
[2016-11-08] MEDS ORDERED: PRESERVISION T1 EACH PO (14:41)
[2016-11-08] MEDS ORDERED: B COMPLETE1 EACH PO (14:41)
[2016-11-08] MEDS ORDERED: HYDROCHLOROTHIA25 MG PO (14:44)
[2016-11-08] MEDS ORDERED: LOSARTAN-HCTZ1 EACH PO (15:53)
[2016-11-08] MEDS ORDERED: AMLODIPINE BESYL5 MG PO (15:53)
== END 2016-11-08 16:38 | disposition home or self-care (01) ==
LOC: EME 19:51 → 5SOUTH 11-07 03:36 → EDOF 11-07 03:36 → 5SOUTH 11-07 03:36
PROVIDERS: Hospitalist; Internal Medicine
PROC: 30233N1 Transfusion of Nonautologous Red Blood Cells into Peripheral Vein, Percutaneous Approach (ICD-10-PCS; 2016-11-06)
PROC: 30233R1 Transfusion of Nonautologous Platelets into Peripheral Vein, Percutaneous Approach (ICD-10-PCS; principal; 2016-11-07)
DX: D61.818 Other pancytopenia (principal); D46.9 Myelodysplastic syndrome, unspecified; K92.2 Gastrointestinal hemorrhage, unspecified; J44.9 Chronic obstructive pulmonary disease, unspecified; I11.0 Hypertensive heart disease with heart failure; I50.9 Heart failure, unspecified; I48.91 Unspecified atrial fibrillation; E78.5 Hyperlipidemia, unspecified; E66.9 Obesity, unspecified; Z68.32 Body mass index [BMI] 32.0-32.9, adult; I71.4 Abdominal aortic aneurysm, without rupture; Z96.642 Presence of left artificial hip joint; Z96.652 Presence of left artificial knee joint; Z87.891 Personal history of nicotine dependence
CPT/HCPCS: 36415; 80048; 80053; 81003; 85007; 85014; 85018; 85025; 85027; 85610; 86900; 86901; 86920; 87493; 94010; 94640; 94640 76; 99202; 99281; 99285; C9113; G0378; J1940; J7030; P9016; P9035

== ENCOUNTER 2018-01-07 11:42 | Inpatient (IN) | payer OTHER ==
[~2018-01-07] VITALS: Ht 185.4 cm; Wt 102.9 kg
[2018-01-07] VITALS (18 sets, daily range): BP systolic 92–148; BP diastolic 52–83
[~2018-01-07 11:42] MED LIST changes: +ACYCLOVIR400 MG PO; +B COMPLETE1 EACH PO; +LOPRESSOR100 M1 PO; +LOSARTAN-HCTZ1 EACH PO; +ONDANSETRON HCL8 MG PO; +PRESERVISION T1 EACH PO; -ZOCOR80 MG PO
[2018-01-07 12:32] LABS: INTER. NORMALIZED RATIO 1.2
[2018-01-07 12:33] LABS: HEMATOCRIT 20.2 % (38.0-50.0); MCH 31.5 PG (29.0-34.0); MCHC 33.7 G/DL (30.0-36.0); MCV 93.5 FL (86-99); RBC DIS.WIDTH-CV 19.4 % (11.8-14.6); RBC DIS.WIDTH-SD 53.6 % (39-53); RED BLOOD COUNT 2.16 M/uL (4.00-5.50)
[2018-01-07 12:35] LABS: PTT 28.8 SEC (25-37)
[2018-01-07 12:36] LABS: HEMOGLOBIN 6.8 G/DL (12.5-16.6); WHITE BLOOD COUNT 1.2 K/uL (4.1-10.2)
[2018-01-07 12:38] LABS: CHLORIDE 108 mEq/L (99-109)
[2018-01-07 12:39] LABS: MAGNESIUM 2.2 mg/dL (1.3-2.7); POTASSIUM 4.8 mEq/L (3.7-5.4); SODIUM 138 mEq/L (136-147)
[2018-01-07 12:40] LABS: GLUCOSE 125 mg/dL (70-99)
[2018-01-07 12:44] LABS: CREATININE 0.8 mg/dL (0.6-1.3); GFR ESTIMATE (CALCULATED) > 59 mL/min/ (58.99-99999)
[2018-01-07 12:45] LABS: UREA NITROGEN (BUN) 16 mg/dL (9-23)
[2018-01-07 12:48] LABS: TROP-I INTERPRETATION NEGATIVE; TROPONIN-I 0.01 ng/mL (0.0-0.30)
[2018-01-07 13:26] LABS: COMMENTS - BLOOD GASES A+C+; DEVICE VENT; FI02 100 %; INSPIRATION TIME 0.9 seconds; MECHANICAL RATE 20 resp/min; MODE ACVC+; PEEP 5 CM/H20; SITE RIGHT RADIAL; TIDAL VOLUME 500 ML; TOTAL RESP RATE 20 resp/min
[2018-01-07 13:27] LABS: PCO2 37 mm Hg (35-45); PO2 505 mm Hg (80-100); pH 7.38 (7.35-7.45)
[2018-01-07 13:28] LABS: BASE EXCESS -2.8 mEq/L (-3 to +3); BICARBONATE 21.9 mEq/L (22-26)
[2018-01-07 13:33] LABS: BASOPHIL (%) 0 % (0-1); EOSINOPHIL (%) 0 % (0-5); IMM.PLATELET FRACTION 4.6 (1-7); IMMATURE GRANULOCYTE (%) 0.8 % (0.0-0.7); LYMPHOCYTE (%) 64.5 % (15-42); LYMPHOCYTE COUNT 0.8 K/uL (1.0-2.8); MONOCYTE (%) 6.5 % (3-12); MONOCYTE COUNT 0.1 K/uL (0-0.8); NEUTROPHIL (%) 28.2 % (45-76); NEUTROPHIL COUNT 0.4 K/uL (1.8-6.4); PLAT.SUFFICIENCY VERY DECREASED
[2018-01-07 13:34] LABS: PLATELET COUNT 7 K/uL (156-360)
[2018-01-07 13:45] LABS: APPEARANCE CLEAR ((CLEAR)); BILIRUBIN NEGATIVE; BLOOD SMALL; COLOR YELLOW ((YELLOW)); GLUCOSE (STRIP) NEGATIVE; KETONES NEGATIVE; LEUKOCYTES NEGATIVE; NITRITE NEGATIVE; PROTEIN (STRIP) 100; SPECIFIC GRAVITY 1.038 (1.000-1.030)
[2018-01-07 13:52] LABS: BACTERIA RARE /HPF; EPITHELIAL CELLS RARE /HPF; MUCUS TRACE /LPF; UCUL ADDED? NO; WHITE BLOOD CELLS 0-5 /HPF (0-5)
[2018-01-08] VITALS (25 sets, daily range): BP systolic 101–138; BP diastolic 41–78
[2018-01-08 05:41] LABS: HEMATOCRIT 21.8 % (38.0-50.0); HEMOGLOBIN 7.4 G/DL (12.5-16.6); MCH 31.5 PG (29.0-34.0); MCHC 33.9 G/DL (30.0-36.0); MCV 92.8 FL (86-99); RBC DIS.WIDTH-CV 17.8 % (11.8-14.6); RBC DIS.WIDTH-SD 48.5 % (39-53); RED BLOOD COUNT 2.35 M/uL (4.00-5.50)
[2018-01-08 05:43] LABS: WHITE BLOOD COUNT 0.9 K/uL (4.1-10.2)
[2018-01-08 06:46] LABS: IMM.PLATELET FRACTION 4.6 (1-7); PLAT.SUFFICIENCY VERY DECREASED
[2018-01-08 06:50] LABS: CHLORIDE 106 MEQ/L (99-109); CREATININE 0.9 MG/DL (0.6-1.3); GFR ESTIMATE (CALCULATED) > 59 mL/min/ (58.99-99999); GLUCOSE 138 mg/dL (70-99); SODIUM 136 MEQ/L (136-147); UREA NITROGEN (BUN) 17 mg/dL (9-23)
[2018-01-08 07:00] LABS: PLATELET COUNT 7 K/uL (156-360)
[2018-01-08] MEDS ORDERED: ZOCOR80 MG PO (11:57)
[2018-01-08] MEDS ORDERED: POTASSIUM CHLO10 ME4 PO (11:57)
[2018-01-08] MEDS ORDERED: ACYCLOVIR400 MG PO (11:58)
[2018-01-08] MEDS ORDERED: CIPROFLOXACIN250 MG PO (11:58)
[2018-01-08] MEDS ORDERED: BACTRIM,SEPT1 TABLET PO (11:58)
[2018-01-08] MEDS ORDERED: ICAPS TABLET1 EACH PO (12:02)
[2018-01-08 21:54] LABS: HEMATOCRIT 26.7 % (38.0-50.0); HEMOGLOBIN 9.5 G/DL (12.5-16.6); MCV 91.1 FL (86-99)
[2018-01-09] VITALS (9 sets, daily range): BP systolic 125–154; BP diastolic 58–76
[2018-01-09 08:30] LABS: HEMATOCRIT 29.4 % (38.0-50.0); HEMOGLOBIN 10.3 G/DL (12.5-16.6); MCH 32.2 PG (29.0-34.0); MCV 91.9 FL (86-99); NRBC (%) 0.9 /100 WBC (0-0); RBC DIS.WIDTH-CV 17.4 % (11.8-14.6); RBC DIS.WIDTH-SD 50.3 % (39-53); WHITE BLOOD COUNT 2.1 K/uL (4.1-10.2)
[2018-01-09 09:47] LABS: ABS NEUTROPHIL COUNT 0.7; ACANTHOCYTES 1+; ANISOCYTOSIS 1+; BASOPHILS 0.9 %; EOSINOPHIL ABS CT 0; EOSINOPHILS 1.7 % (0-5.0); IMM.PLATELET FRACTION 6.7 (1-7); LYMPHOCYTES 50.9 % (15.0-45.0); MONOCYTES 11.4 % (0-9.0); MYELOCYTES 0.9 %; PLAT.SUFFICIENCY VERY DECREASED
[2018-01-09 09:48] LABS: PLATELET COUNT 6 K/uL (156-360); SEG.NEUTROPHILS 34.2 % (46.0-76.0)
[2018-01-10] VITALS (9 sets, daily range): BP systolic 131–157; BP diastolic 50–75
[2018-01-10 06:31] LABS: HEMATOCRIT 26.4 % (38.0-50.0); MCH 31.4 PG (29.0-34.0); MCHC 34.1 G/DL (30.0-36.0); RBC DIS.WIDTH-CV 17.7 % (11.8-14.6); RBC DIS.WIDTH-SD 51.8 % (39-53); RED BLOOD COUNT 2.87 M/uL (4.00-5.50)
[2018-01-10 06:36] LABS: WHITE BLOOD COUNT 1.3 K/uL (4.1-10.2)
[2018-01-10 06:39] LABS: CHLORIDE 104 MEQ/L (99-109); CREATININE 0.8 MG/DL (0.6-1.3); GFR ESTIMATE (CALCULATED) > 59 mL/min/ (58.99-99999); GLUCOSE 122 mg/dL (70-99); POTASSIUM 4.3 MEQ/L (3.7-5.4); SODIUM 137 MEQ/L (136-147); UREA NITROGEN (BUN) 15 mg/dL (9-23)
[2018-01-10 06:43] LABS: ABS NEUTROPHIL COUNT 0.4; ANISOCYTOSIS 1+; EOSINOPHIL ABS CT 0; IMM.PLATELET FRACTION 4.4 (1-7); LYMPHOCYTES 68.5 % (15.0-45.0); MACROCYTES 1+; METAMYELOCYTES 4.5 %; NUCLEATED RBC'S 3.6; PLAT.SUFFICIENCY VERY DECREASED
[2018-01-10 06:44] LABS: PLATELET COUNT 10 K/uL (156-360)
== END 2018-01-10 17:00 | disposition home or self-care (01) | DRG 208 ==
LOC: EME 11:42 → 4WEST 14:20 → ENRESERV 14:20 → 5SOUTH 14:20 → EDOF 14:20 → ENRESERV 14:26 → CANRESERV 14:26 → ENRESERV 16:18 → 4WEST 16:39 → ENRESERV 01-08 17:37 → 5SOUTH 01-08 19:57
PROVIDERS: Emergency Medicine; Internal Medicine; Internal Medicine Critical Care Medicine
PROC: 5A09357 Assistance with Respiratory Ventilation, Less than 24 Consecutive Hours, Continuous Positive Airway Pressure (ICD-10-PCS; principal; 2018-01-07)
PROC: 5A1935Z Respiratory Ventilation, Less than 24 Consecutive Hours (ICD-10-PCS; 2018-01-07)
PROC: 0BH17EZ Insertion of Endotracheal Airway into Trachea, Via Natural or Artificial Opening (ICD-10-PCS; 2018-01-07)
PROC: 30233N1 Transfusion of Nonautologous Red Blood Cells into Peripheral Vein, Percutaneous Approach (ICD-10-PCS; 2018-01-07)
PROC: 30233R1 Transfusion of Nonautologous Platelets into Peripheral Vein, Percutaneous Approach (ICD-10-PCS; 2018-01-09)
DX: J96.01 Acute respiratory failure with hypoxia (principal); D61.818 Other pancytopenia; J44.1 Chronic obstructive pulmonary disease with (acute) exacerbation; I48.91 Unspecified atrial fibrillation; D46.A Refractory cytopenia with multilineage dysplasia; T80.89XA Other complications following infusion, transfusion and therapeutic injection, initial encounter; J98.11 Atelectasis; I10 Essential (primary) hypertension; E78.5 Hyperlipidemia, unspecified; Z96.652 Presence of left artificial knee joint; Z96.642 Presence of left artificial hip joint; Z87.891 Personal history of nicotine dependence
CPT/HCPCS: 36415; 36600; 71045; 71275; 80047; 80048; 81003; 83605; 83735; 84484; 85014; 85018; 85025; 85027; 85610; 85730; 86850; 86900; 86901; 86920; 87040; 87070; 87205; 87641; 93005; 94002; 94640; 94760; 94799; 99281; 99285; J1200; J1644; J2704; J2930; J3010; J7030; P9016; P9035; P9037; S0028